=== PATIENT | male | born 1940 | race American Indian/Alaskan Native ===

== ENCOUNTER 2016-05-23 21:15 | Inpatient (IN) | payer MEDICARE ==
[2016-05-23] MEDS ORDERED: SENOKOT PO PRN (21:48)
[2016-05-23] MEDS ORDERED: TYLENOL PO PRN (21:48)
[2016-05-23] MEDS ORDERED: DULCOLAX PR PRN (21:48)
[2016-05-23] MEDS ORDERED: D50W (25GM) IV PRN (21:48)
[2016-05-23] MEDS ORDERED: LEVEMIR SUB-Q SCH (21:57)
[2016-05-23] MEDS: COLACE PO SCH (22:44)
[2016-05-23] MEDS: COREG PO SCH (22:44)
[2016-05-24 06:25] LABS: Basophils % (Auto) 0.4 % (0.0-1.8); Eosinophils % (Auto) 1.2 % (0.0-4.3); Hematocrit 41.9 % (35.5-45.6); Hemoglobin 13.7 gm/dl (11.8-15.2); Mean Corpuscular HGB Conc 33 % (32-34); Mean Corpuscular Hemoglobin 28 pg (28-32); Mean Corpuscular Volume 85 fl (84-94); Platelet Count 182 K/mm3 (140-440); Red Blood Count 4.96 M/mm3 (3.65-5.03); Red Cell Distribution Width 14.2 % (13.2-15.2); White Blood Count 7.6 K/mm3 (4.5-11.0)
[2016-05-24 06:49] LABS: Albumin 3.4 g/dL (3.9-5); BUN/Creatinine Ratio 12.14; Bilirubin,Total 0.5 mg/dL (0.1-1.2); Calcium 8.9 mg/dL (8.4-10.2); Chloride 98.1 mmol/L (98-107); Potassium 4.3 mmol/L (3.6-5.0); Total Protein 6.9 g/dL (6.3-8.2)
[2016-05-24] MEDS: NOVOLOG SUB-Q SCH ×4 (07:30→22:50)
[2016-05-24] MEDS ORDERED: NORVASC PO SCH (08:00)
[2016-05-24] MEDS ORDERED: ZESTRIL PO SCH (08:00)
[2016-05-24] MEDS: ZESTRIL PO SCH (09:39)
[2016-05-24] MEDS: ECOTRIN PO SCH (09:39)
[2016-05-24] MEDS: VITAMIN C PO SCH (09:40)
[2016-05-24] MEDS: COLACE PO SCH ×2 (09:40→22:39)
[2016-05-24] MEDS: LOVENOX SUB-Q SCH (09:40)
[2016-05-24] MEDS: COREG PO SCH ×2 (09:44→22:38)
--- NOTE | 2016-05-24 11:40 | History and Physical Report ---
History of Present Illness Date: 05/24/16 Referring Facility: [facility] Date of admission: 05/23/16 21:15 Chief Complaint: acute right frontal lobe infarct History of present illness: POST ADMISSION PHYSICIAN EVALUATION ONSET DATE: 05/21/2016 IMPAIRMENT GROUP CODE: 01.1 ETIOLOGIC DIAGNOSIS: acute right frontal lobe infarct STATUS CHANGES SINCE PREADMISSION SCREENING: PAS has been reviewed. In comparison, pt is more alert on today. He continues with dysarthria, dysphagia , and facial droop. Pt was able to initiate in therapy evaluations on today; continues with functional deficits. Pt remains an appropriate candidate for IRU admission. PREVIOUS FUNCTIONAL STATUS: Independent with ADLs, gait, and transfers CURRENT FUNCTIONAL STATUS: SBA-Rosario for ADLs; Rosario/CGA for transfers and gait HPI 75 y.o. right handed male admitted to [facility] due to acute onset of dysarthria and facial droop. MRI Brain confirmed right frontal CVA. Pt continued with presenting symptoms, also with left sided weakness, arm>leg. MBS was completed on acute care (05/23/2016); cleared for pureed with honey thickened liquids. Acute care course was complicated by fluctuating SBP, ranging from 144-199. Pt was noted to have decline in functional baseline following evaluation by PT and OT. Pt is now admitted to IRU for aggressive therapies and ongoing medical management. Past History Past Medical History: diabetes, hypertension, hyperlipidemia, stroke (no residual deficits prior to admission) Past Surgical History: No surgical history Social history: single, Lives alone (however, will discharge to one of his childrens' homes ). denies: smoking, alcohol abuse Family history: diabetes, hypertension, stroke Medications and Allergies Allergies Allergy/AdvReac Type Severity Reaction Status Date / Time No Known Allergies Allergy Verified 08/01/15 16:13 Home Medications Medication Instructions Recorded Confirmed Last Taken Type Lisinopril [Zestril TAB] 20 mg PO QDAY 08/09/13 05/21/16 08/10/13 History amLODIPine [Norvasc] 10 mg PO QDAY 08/09/13 05/21/16 08/10/13 History Carvedilol [Coreg] 6.25 mg PO BID 05/21/16 05/21/16 Unknown History Ascorbic Acid [Vitamin C] 500 mg PO DAILY tablet 05/23/16 Unknown Rx Aspirin EC [Aspirin Enteric Coated 325 mg PO QDAY #30 tablet. 05/23/16 Unknown Rx TAB] AtorvaSTATin [Lipitor] 80 mg PO QHS tablet 05/23/16 Unknown Rx Insulin Detemir [Levemir] 40 unit SQ QHS #1 vial 05/23/16 Unknown Rx Active Meds: Active Medications Acetaminophen (Tylenol) 650 mg PO Q4H PRN PRN Reason: Pain MILD(1-3)/Fever >100.5/MAE Amlodipine Besylate (Norvasc) 10 mg PO DAILY [facility] Ascorbic Acid (Vitamin C) 500 mg PO DAILY [facility] Last Admin: 05/24/16 09:40 Dose: 500 mg Aspirin (Ecotrin) 325 mg PO QDAY [facility] Last Admin: 05/24/16 09:39 Dose: 325 mg Atorvastatin Calcium (Lipitor) 80 mg PO QHS [facility] Bisacodyl (Dulcolax) 10 mg HI QDAY PRN PRN Reason: Constipation unrelieved by MOM Carvedilol (Coreg) 6.25 mg PO BID [facility] Last Admin: 05/24/16 09:44 Dose: 6.25 mg Dextrose (D50w (25gm)) 50 ml IV PRN PRN PRN Reason: Hypoglycemia Docusate Sodium (Colace) 100 mg PO BID [facility] Last Admin: 05/24/16 09:40 Dose: 100 mg Enoxaparin Sodium (Lovenox) 40 mg SUB-Q QDAY [facility] Last Admin: 05/24/16 09:40 Dose: 40 mg Insulin Aspart (Novolog) 0 units SUB-Q AC [facility] PRN Reason: Protocol Last Admin: 05/24/16 07:30 Dose: Not Given Insulin Detemir (Levemir) 40 units SUB-Q QHS [facility] Lisinopril (Zestril) 20 mg PO QDAY [facility] Last Admin: 05/24/16 09:39 Dose: 20 mg Senna (Senokot) 8.6 mg PO Q12H PRN PRN Reason: Laxative Effect Review of Systems All systems: negative Ears, nose, mouth and throat: no headache Respiratory: no cough, no shortness of breath Gastrointestinal: no nausea, no vomiting Genitourinary Male: incontinence Neurological: weakness (left extremities) Exam - Constitutional Vitals: Vital Signs - 12hr 05/24/16 05/24/16 08:00 09:39 Temperature 98.7 F Pulse Rate 64 Pulse Rate [ 64 Left Brachial] Respiratory 18 Rate Blood Pressure 126/62 Blood Pressure 126/62 [Left Arm] O2 Sat by Pulse 99 Oximetry General appearance: no acute distress - EENT Eyes: no EOM intact ENT: hearing intact - Neck Neck: supple, normal ROM - Respiratory Respiratory effort: normal Respiratory: bilateral: CTA - Cardiovascular Rhythm: regular Heart Sounds: Present: S1 & S2 - Extremities Extremities: No edema - Gastrointestinal General gastrointestinal: Present: soft, non-tender, non-distended, normal bowel sounds - Integumentary Integumentary: Present: clear - Musculoskeletal Musculoskeletal: left sided weakness (2/5) - Neurologic Neurologic: other (facial droop; dysarthria) - Psychiatric Psychiatric: no memory intact, cooperative (flat affect) - Labs CBC & Chem 7: 05/24/16 05:57 05/24/16 05:57 Labs: Laboratory Results - last 72 hr 05/23/16 05/24/16 05/24/16 22:48 05:48 05:57 WBC 7.6 RBC 4.96 Hgb 13.7 Hct 41.9 MCV 85 MCH 28 MCHC 33 RDW 14.2 Plt Count 182 Lymph % (Auto) 27.0 Camp % (Auto) 8.2 H Eos % (Auto) 1.2 Baso % (Auto) 0.4 Lymph # 2.1 Camp # 0.6 Eos # 0.1 Baso # 0.0 Seg Neutrophils % 63.2 Seg Neutrophils # 4.8 Sodium Potassium Chloride Carbon Dioxide Anion Gap BUN Creatinine Estimated GFR BUN/Creatinine Ratio Glucose POC Glucose 103 119 H Calcium Total Bilirubin AST ALT Alkaline Phosphatase Total Protein Albumin Albumin/Globulin Ratio 05/24/16 05:57 WBC RBC Hgb Hct MCV MCH MCHC RDW Plt Count Lymph % (Auto) Camp % (Auto) Eos % (Auto) Baso % (Auto) Lymph # Camp # Eos # Baso # Seg Neutrophils % Seg Neutrophils # Sodium 134 L Potassium 4.3 Chloride 98.1 Carbon Dioxide 21 L Anion Gap 19 BUN 17 Creatinine 1.4 Estimated GFR 60 BUN/Creatinine Ratio 12.14 Glucose 133 H POC Glucose Calcium 8.9 Total Bilirubin 0.5 AST 15 ALT 8 Alkaline Phosphatase 73 Total Protein 6.9 Albumin 3.4 L Albumin/Globulin Ratio 1.0 Assessment and Plan Assessment and plan: 75 y.o. right handed male a/p acute right frontal CVA; facial droop, dysarthria , dysphagia, left hemiparesis. The patient is medically stable, however, requires ongoing medical management. Pt is appropriate for inpatient rehabilitation admission and is thought to be able to tolerate at least 3 hours of therapy a day, 5 days a week including 1 hour of physical therapy, 1 hour of occupational therapy, and 1 hour of speech therapy. Patient is able to understand and follow basic directions and has attainable rehab goals. Potential barriers/complications include falls, extension/recurrent CVA, depression, DVT, PE, uncontrolled HTN, parasthesias, aspiration pneumonia, hypotension. Plan 1. Rehabilitation- Pt will undergo multidisciplinary/integrative rehab PT/OT/ REGIONAL TRAINING MANAGER, Nursing. Areas to be addressed include, but are not limited to PT for mobility, strengthening, transfer training, ROM, endurance, stairs, balance; OT for ADLs, household tasks, adaptive equipment; REGIONAL TRAINING MANAGER for cognition, swallowing, compensatory techniques; Nursing for carryover of therapies, pain control, education, skin integrity, medication management, bowel/bladder management; Nutrition as needed; youth services specialist for discharge planning and equipment needs. Potential interventions include appropriate assistive device or adaptive equipment. Expected overall level of functional improvement by discharge is Jie to supervision with ADLs, gait, transfers. Pt will tentatively be discharged home with outpatient PT/OT/REGIONAL TRAINING MANAGER. Estimated length of stay is 1-2 weeks. 2. s/p right CVA- ASA, statin; PT/OT/REGIONAL TRAINING MANAGER to address functional deficits, dysphagia, dysarthria, gait dysfunction secondary to CVA 3. HTN- stable on current regimen; follow and adjust meds as needed 4. DM- on 40U levemir at home; however, with BS of 103 last night, 119 this AM ; will give 10U tonight and follow; slowly increase as po intake increases 5. hyponatremia- follow 6. DVT px- lovenox - Patient Problems (1) Acute ischemic stroke Current Visit: Yes Status: Acute (2) Hemiparesis affecting left side as late effect of cerebrovascular accident Current Visit: Yes Status: Acute (3) Dysphagia following cerebrovascular accident (CVA) Current Visit: Yes Status: Acute (4) Dysarthria due to cerebrovascular accident (CVA) Current Visit: Yes Status: Acute (5) Hyponatremia Current Visit: Yes Status: Acute (6) HTN (hypertension) Current Visit: Yes Status: Chronic Qualifiers: Hypertension type: essential hypertension Qualified Code(s): I10 - Essential (primary) hypertension (7) Diabetes Current Visit: Yes Status: Chronic Qualifiers: Diabetes mellitus type: type 2 Diabetes mellitus complication status: with hyperglycemia Diabetes mellitus complication detail: D Diabetic retinopathy severity: D Proliferative retinopathy type: P Diabetes mellitus macular edema: D Diabetes mellitus emt intermediate insulin use: with snf use Laterality: L Chronic kidney disease stage: C Qualified Code(s): E11.65 - Type 2 diabetes mellitus with hyperglycemia; Z79.4 - technician terminal and repeater (current) use of insulin
[2016-05-24] MEDS: NORVASC PO SCH (13:03)
[2016-05-24] MEDS ORDERED: LEVEMIR SUB-Q SCH ×3 (21:00)
[2016-05-25] MEDS: NOVOLOG SUB-Q SCH ×4 (08:25→23:00)
[2016-05-25] MEDS: ECOTRIN PO SCH (09:45)
[2016-05-25] MEDS: NORVASC PO SCH (09:45)
[2016-05-25] MEDS: COLACE PO SCH ×2 (09:45→23:34)
[2016-05-25] MEDS: LOVENOX SUB-Q SCH (09:46)
[2016-05-25] MEDS: COREG PO SCH ×2 (09:47→23:32)
[2016-05-25] MEDS: VITAMIN C PO SCH (09:47)
[2016-05-25] MEDS: ZESTRIL PO SCH (09:48)
--- NOTE | 2016-05-25 15:38 | IRU Plan of Care ---
Interdisciplinary Plan of Care - IP IRU INTERDISCIPLINARY PLAN: [facility] Inpatient Rehab Unit Plan of Care IRU Interdisciplinary Care Plan Start: 05/23/16 22: 09 Freq: Admission then PRN Status: Active Document 05/24/16 17:38 DB (Rec: 05/24/16 17:46 DB [id number]) Interdisciplinary Problem List Interdisciplinary Problem List Interdisciplinary Problem List Impaired Eating/Swallowing Query Text:Answers will Trigger Problems Impaired Bathing/Grooming and Outcomes on Worklist. Impaired Dressing Impaired Mobility Impaired Transfers Impaired Bladder/Bowel Management Impaired Toileting Impaired Expression Knowledge Deficits Impaired Home Management Impaired Safety Medications Education Diabetes Education IRU Interdisciplinary Care Plan Therapy Services Therapy Services Will Include: Physical Therapy Query Text:Patient will be seen for a Occupational Therapy minimum of 3 hours of daily therapy 5 Speech Therapy out of 7 days a week. Therapy intensity may be adjusted within a 7 consecutive day period to effectively serve the individual needs of the patient. Treatment Frequency/Intensity/Duration Treatment Frequency 5 days per week Treatment Intensity 1 hour per discipline (PT/OT/ RUBBER INSULATOR) daily Treatment Duration 14-21 days Problem Area: Eating/Swallowing Eating/Swallowing Outcomes Consume Least Restrictive Diet Improve Labial ROM/Strength Improve Lingual ROM/Strength Eating/Swallowing Interventions Dysphagia Training Neuromuscular Re-Education Patient/Caregiver Education Problem Area: Bathing/Grooming Bathing/Grooming Outcomes Improve [place]althall w/ Grooming Improve [place] w/ Bathing Bathing/Grooming Interventions ADL Training Use of Assistive Devices Therapeutic Exercise Therapeutic Activity Balance Work Patient/Caregiver Education Problem Area: Dressing Dressing Outcomes Improve Walthall w/ UB Dressing Improve Walthall w/ LB Dressing Dressing Interventions ADL Training Use of Assistive Devices Therapeutic Exercise Balance Work Patient/Caregiver Education Problem Area: Mobility Mobility Outcomes Improve Walthall w/ Bed Mobility Improve [place]althall w/ Ambulation Improve [place] w/ Stairs /Curb Improve [place] w/ Wheelchair Mobility Interventions Therapeutic Exercise Neuromuscular Re-Ed. Visual/Perceptual Training Activity Tolerance Work Use of Assistive Devices Patient/Caregiver Education Bed Mobility Work Gait Training W/C Mobility Work Problem Area: Transfers Transfers Outcomes Improve [place] w/ Bed Transfers Improve [place] w/ Toilet Transfers Improve [place] w/ Tub/ Shower Transfers Improve [place] w/ Car Transfers Transfers Interventions Transfer Training Therapeutic Exercise Neuromuscular Re-Education Activity Tolerance Work Use of Assistive Devices Patient/Caregiver Education Problem Area: Bowel/Bladder Managment Bowel/Bladder Outcomes Continent of Bladder Continent of Bowel Remain free of UTI Bowel/Bladder Interventions Bladder Training Program Bowel Training Program Medication Education Patient/Caregiver Education Problem Area: Toileting Toileting Outcomes Improve [place] w/ Toileting Toileting Interventions ADL Training Balance Work Use of Assistive Devices Patient/Caregiver Education Problem Area: Nutrition Nutrition Outcomes Understand and Comply w/ Diet Improve/Maintain Oral Intake Nutrition Interventions Nutritional Counseling Monitor Nutrient Intake Patient/Caregiver Education Problem Area: Comprehension Comprehension Outcomes Comprehension Interventions Problem Area: Expression Expression Outcomes Improve Intelligibility Expression Interventions Expressive Language Patient/Caregiver Education Problem Area: Problem Solving Problem Solving Outcomes Improve Problem Solving Problem Solving Interventions Cognitive Training Visual/Perceptual Training Safety Education Patient/Caregiver Education Problem Area: Memory Memory Outcomes Use Memory Aids Memory Interventions Cognitive Training Review of Precautions Patient/Caregiver Education Problem Area: Pain Management Pain Management Outcomes Demonstrate/Verbalize Pain Strategies Pain Management Interventions Medication Management Positioning/Turning Patient/Caregiver Education Problem Area: Knowledge Deficits Knowledge Deficits Outcomes Verbalize Precautions Verbalize Understanding of S/S of Stroke Knowledge Deficits Interventions Disease/Injury/Sx. Intervention Education Medication Use Education Disease Management Education Health Maintainence Education Safety Education Problem Area: Skin/Tissue Integrity Skin/Tissue Integrity Outcomes Demonstrate Understanding of Pressure Relief Skin/Tissue Integrity Interventions Pressure Relief Instruction Positioning/Turning Problem Area: Social Interaction Social Interaction Outcomes Social Interaction Interventions Problem Area: Adjustment to Disability Adjustment to Disability Outcomes Adjustment to Disability Interventions Problem Area: Discharge Concerns Discharge Concerns Outcomes Discharge Home w/ Necessary Equipment Have Home Health/Outpatient Services Discharge Concerns Interventions Discharge Planning Family/Caregiver Conference Family/Caregiver Training Problem Area: Community Reintegration Community Reintegration Outcomes Demonstrate Understanding of Community Resources Community Reintegration Interventions Provide Community Resources Problem Area: Home Management Home Management Outcomes Home Management Interventions Problem Area: Safety Safety Outcomes Provide Safe Environment Perform Selfcare Safely Demonstrate Good Safety w/ Transfers/Mobility Safety Interventions Identify Fall Risk [place] Pt. to Environment Reduce Environmental Hazards Problem Area: Medication Education Medication Education Outcomes Patient/Caregiver will Verbalize Understanding of Medications Medication Education Interventions Explain Administration/Side Effects/Interactions Problem Area: Diabetes Education Diabetes Education Outcomes Demonstrate Knowledge of Resources Availlable in Diabetic Ed. Folder Diabetes Education Interventions Give Pt. Diabetes Education Folder Discuss Pathophysiology of Diabetes Problem Area: Oxygenation Oxygenation Outcomes Maintain Adequate Oxygenation Oxygenation Interventions Assess Respiratory Status Encourage Coughing and Deep Breathing Elevate Head of Bed Problem Area: Cardiovascular Cardiovascular Outcomes Cardiovascular Interventions Physician Only Medical Prognosis and Rehabilitation Patient demonstrates good Potential (Completed by Physician) rehab potential. Medical Prognosis: Good This plan of care has been developed based on the findings from the pre- admission assessment, post admission physician evaluation, information gathered from the assessments from all therapy disciplines and other pertinent clinicians. The plan of care has been reviewed and discussed in collaboration with the interdisciplinary team. The plan of care will be reviewed and updated at least weekly. 75 y.o. right handed male a/p acute right frontal CVA; facial droop, dysarthria , dysphagia, left hemiparesis. The patient remains at risk for falls, extension /recurrent CVA, depression, DVT, PE, uncontrolled HTN, parasthesias, aspiration pneumonia, hypotension, hypoglycemia. Pt is tolerating therapies; noted to have worsening left sided weakness at the end of the day due to fatigue. Will need to follow blood sugars closely, home levemir discontinued due to hypoglycemia; follow HTN and hyponatremia. Pt continues with functional and cognitive deficits; remains an appropriate candidate for IRU admission.
[2016-05-26] MEDS: NOVOLOG SUB-Q SCH ×3 (08:51→20:12)
[2016-05-26] MEDS: LOVENOX SUB-Q SCH (08:52)
[2016-05-26] MEDS: ECOTRIN PO SCH (08:52)
[2016-05-26] MEDS: ZESTRIL PO SCH (08:53)
[2016-05-26] MEDS: COLACE PO SCH ×2 (08:53→22:55)
[2016-05-26] MEDS: NORVASC PO SCH ×2 (08:54→10:00)
[2016-05-26] MEDS: COREG PO SCH ×2 (08:54→22:53)
[2016-05-26] MEDS: VITAMIN C PO SCH ×2 (08:55→10:00)
[2016-05-27] MEDS: NOVOLOG SUB-Q SCH ×4 (10:01→23:10)
[2016-05-27] MEDS: ECOTRIN PO SCH (10:02)
[2016-05-27] MEDS: COREG PO SCH ×2 (10:02→22:40)
[2016-05-27] MEDS: LOVENOX SUB-Q SCH (10:02)
[2016-05-27] MEDS: NORVASC PO SCH (10:03)
[2016-05-27] MEDS: ZESTRIL PO SCH (10:03)
[2016-05-27] MEDS: VITAMIN C PO SCH (10:03)
[2016-05-27] MEDS: COLACE PO SCH ×2 (10:15→22:40)
--- NOTE | 2016-05-27 14:44 | Progress Note ---
Assessment and Plan 75 y.o. 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; modified diet - HTN- stable on current regimen - DM- on 40U levemir at home; blood sugars elevated with improved po intake, will resume levemir and slowly increase as needed - DVT px- lovenox - Patient Problems (1) Acute ischemic stroke Current Visit: Yes Status: Acute (2) Hemiparesis affecting left side as late effect of cerebrovascular accident Current Visit: Yes Status: Acute (3) Dysphagia following cerebrovascular accident (CVA) Current Visit: Yes Status: Acute (4) Dysarthria due to cerebrovascular accident (CVA) Current Visit: No Status: Acute (5) HTN (hypertension) Current Visit: Yes Status: Chronic Qualifiers: Hypertension type: essential hypertension Qualified Code(s): I10 - Essential (primary) hypertension (6) Diabetes Current Visit: Yes Status: Chronic Qualifiers: Diabetes mellitus type: type 2 Diabetes mellitus complication status: with hyperglycemia Diabetes mellitus complication detail: D Diabetic retinopathy severity: D Proliferative retinopathy type: P Diabetes mellitus macular edema: D Diabetes mellitus prison insulin use: with benefits assistant use Laterality: L Chronic kidney disease stage: C Qualified Code(s): E11.65 - Type 2 diabetes mellitus with hyperglycemia; Z79.4 - chemical research technician (current) use of insulin Subjective Date of service: 05/27/16 Principal diagnosis: acute right frontal CVA Interval history: Pt seen ambulating in hallway with PT and in room this AM; F/U IPR course, s/p acute right frontal CVA. Pt is without any new complaints, more alert today during gait training Objective - Constitutional General appearance: Present: no acute distress - EENT Eyes: EOM intact ENT: hearing intact - Neck Neck: supple, normal ROM - Respiratory Respiratory effort: normal Respiratory: bilateral: CTA - Cardiovascular Rhythm: regular Heart Sounds: Present: S1 & S2 Extremities: No edema - Gastrointestinal General gastrointestinal: Present: soft, non-tender, non-distended, normal bowel sounds - Integumentary Integumentary: clear - Musculoskeletal Musculoskeletal: left sided weakness (2/5) - Psychiatric Psychiatric: cooperative (flat affect) - Allied health notes Allied health notes reviewed: PT (Rosario for transfers and gait, ambulating 200 feet ), OT (SBA to Rosario for ADLs) - Labs CBC & Chem 7: 05/24/16 05:57 05/24/16 05:57 Labs: Abnormal lab results 05/26/16 05/26/16 05/26/16 Range/Units 11:57 16:57 21:42 POC Glucose 242 H 109 H 210 H (70-105) 05/27/16 05/27/16 Range/Units 07:16 11:18 POC Glucose 211 H 275 H (70-105)
[2016-05-27] MEDS: LEVEMIR SUB-Q SCH (22:53)
[2016-05-28] MEDS: NORVASC PO SCH (10:45)
[2016-05-28] MEDS: ECOTRIN PO SCH (10:45)
[2016-05-28] MEDS: ZESTRIL PO SCH (10:46)
[2016-05-28] MEDS: COREG PO SCH ×2 (10:46→22:50)
[2016-05-28] MEDS: COLACE PO SCH ×2 (10:46→22:49)
[2016-05-28] MEDS: NOVOLOG SUB-Q SCH ×5 (10:46→22:56)
[2016-05-28] MEDS: VITAMIN C PO SCH (10:46)
[2016-05-28] MEDS: LOVENOX SUB-Q SCH (10:48)
--- NOTE | 2016-05-28 16:24 | Progress Note ---
Assessment and Plan 75 y.o. right handed male a/p acute right frontal CVA; facial droop, dysarthria , dysphagia, left hemiparesis - s/p right CVA- ASA, statin - gait dysfunction secondary to CVA- ongoing gait training - dysarthria/dysphagia- continue STERILE TECH; modified diet (pureed, honey thickened liquids) - HTN- stable - DM- restarted on levemir on yesterday; follow and adjust as needed - DVT px- lovenox - team conference held on today- pt is s/u for eating; min-modA for remaining ADLs; CGA for transfer; Rosario for WC mobility; ambulating 200 feet with RW at Rosario. Barriers- left sided neglect; incontinence. Tentative d/c date is 06/11 - Patient Problems (1) Acute ischemic stroke Current Visit: Yes Status: Acute (2) Hemiparesis affecting left side as late effect of cerebrovascular accident Current Visit: Yes Status: Acute (3) Dysphagia following cerebrovascular accident (CVA) Current Visit: Yes Status: Acute (4) Dysarthria due to cerebrovascular accident (CVA) Current Visit: No Status: Acute (5) HTN (hypertension) Current Visit: Yes Status: Chronic Qualifiers: Hypertension type: essential hypertension Qualified Code(s): I10 - Essential (primary) hypertension (6) Diabetes Current Visit: Yes Status: Chronic Qualifiers: Diabetes mellitus type: type 2 Diabetes mellitus complication status: with hyperglycemia Diabetes mellitus complication detail: D Diabetic retinopathy severity: D Proliferative retinopathy type: P Diabetes mellitus macular edema: D Diabetes mellitus oysterman insulin use: with oysterman use Laterality: L Chronic kidney disease stage: C Qualified Code(s): E11.65 - Type 2 diabetes mellitus with hyperglycemia; Z79.4 - jail (current) use of insulin (7) Abnormality of gait following cerebrovascular accident (CVA) Current Visit: Yes Status: Acute Subjective Date of service: 05/28/16 Principal diagnosis: acute right frontal CVA Interval history: Pt seen this afternoon; F/U IPR course, s/p acute right frontal CVA. No new complaints overnight; propelling WC in hallway, required cues to prevent running into objects on the left Objective - Constitutional Vitals: Vital Signs - 12hr 05/28/16 05/28/16 08:00 10:45 Temperature 98.3 F Pulse Rate 56 L Pulse Rate [ 56 L Right Brachial] Respiratory 20 Rate Blood Pressure 164/96 Blood Pressure 164/96 [Right Arm] O2 Sat by Pulse 96 Oximetry General appearance: Present: no acute distress - EENT Eyes: EOM intact ENT: hearing intact - Neck Neck: supple, normal ROM - Respiratory Respiratory effort: normal Extremities: No edema - Musculoskeletal Musculoskeletal: left sided weakness - Psychiatric Psychiatric: cooperative (flat affect; follows commands and responds well to cues) - Labs CBC & Chem 7: 05/24/16 05:57 05/24/16 05:57 Labs: Abnormal lab results 05/27/16 05/27/16 05/28/16 Range/Units 16:46 21:39 06:14 POC Glucose 204 H 210 H 210 H (70-105) 05/28/16 Range/Units 12:46 POC Glucose 229 H (70-105)
[2016-05-28] MEDS: LEVEMIR SUB-Q SCH (22:57)
[2016-05-29] MEDS: NOVOLOG SUB-Q SCH ×3 (08:15→17:49)
[2016-05-29] MEDS: COREG PO SCH ×2 (10:15→23:09)
[2016-05-29] MEDS: VITAMIN C PO SCH (10:15)
[2016-05-29] MEDS: ZESTRIL PO SCH (10:15)
[2016-05-29] MEDS: LOVENOX SUB-Q SCH (10:15)
[2016-05-29] MEDS: COLACE PO SCH ×2 (10:16→23:12)
[2016-05-29] MEDS: ECOTRIN PO SCH (10:16)
[2016-05-29] MEDS: NORVASC PO SCH (10:16)
--- NOTE | 2016-05-29 16:07 | Progress Note ---
Assessment and Plan 75 y.o. 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; modified diet (pureed, honey thickened liquids) - HTN- well controlled - DM- well controlled - DVT px- lovenox - Patient Problems (1) Acute ischemic stroke Current Visit: Yes Status: Acute (2) Hemiparesis affecting left side as late effect of cerebrovascular accident Current Visit: Yes Status: Acute (3) Dysphagia following cerebrovascular accident (CVA) Current Visit: Yes Status: Acute (4) Dysarthria due to cerebrovascular accident (CVA) Current Visit: No Status: Acute (5) HTN (hypertension) Current Visit: Yes Status: Chronic Qualifiers: Hypertension type: essential hypertension Qualified Code(s): I10 - Essential (primary) hypertension (6) Diabetes Current Visit: Yes Status: Chronic Qualifiers: Diabetes mellitus type: type 2 Diabetes mellitus complication status: with hyperglycemia Diabetes mellitus complication detail: D Diabetic retinopathy severity: D Proliferative retinopathy type: P Diabetes mellitus macular edema: D 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 No new events overnight; denies any coughing or choking on meals Objective - Constitutional Vitals: Vital Signs - 12hr 05/29/16 05/29/16 10:00 10:15 Temperature 97 F L Pulse Rate 57 L Pulse Rate [ 57 L Right Brachial] Respiratory 18 Rate Blood Pressure 137/70 Blood Pressure 137/70 [Right Arm] O2 Sat by Pulse 98 Oximetry General appearance: Present: no acute distress - EENT Eyes: EOM intact ENT: hearing intact - Neck Neck: supple, normal ROM - Respiratory Respiratory effort: normal Extremities: No edema - Musculoskeletal Musculoskeletal: left sided weakness - Neurologic Neurologic: other (unchandged facial droop) - Psychiatric Psychiatric: appropriate mood/affect, cooperative - Allied health notes Allied health notes reviewed: PT (Rosairo for gait; CGA for transfers; SBA for bed mobility) - Labs CBC & Chem 7: 05/24/16 05:57 05/24/16 05:57 Labs: Abnormal lab results 05/28/16 05/29/16 05/29/16 Range/Units 16:56 06:21 11:56 POC Glucose 178 H 138 H 171 H (70-105)
[2016-05-29] MEDS: LEVEMIR SUB-Q SCH (23:12)
[2016-05-30] MEDS: NOVOLOG SUB-Q SCH ×4 (11:19→22:13)
[2016-05-30] MEDS: ZESTRIL PO SCH (11:31)
[2016-05-30] MEDS: COLACE PO SCH ×2 (11:33→22:12)
[2016-05-30] MEDS: NORVASC PO SCH (11:33)
[2016-05-30] MEDS: ECOTRIN PO SCH (11:33)
[2016-05-30] MEDS: COREG PO SCH ×2 (11:34→22:13)
[2016-05-30] MEDS: VITAMIN C PO SCH (11:35)
[2016-05-30] MEDS: LOVENOX SUB-Q SCH (11:38)
--- NOTE | 2016-05-30 15:45 | Progress Note ---
Assessment and Plan 75 y.o. 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; modified diet (pureed, honey thickened liquids) - HTN- well controlled - DM- notified by nursing of elevated blood sugars after lunch and associated headache - DVT px- lovenox - Patient Problems (1) Acute ischemic stroke Current Visit: Yes Status: Acute (2) Hemiparesis affecting left side as late effect of cerebrovascular accident Current Visit: Yes Status: Acute (3) Dysphagia following cerebrovascular accident (CVA) Current Visit: Yes Status: Acute (4) Dysarthria due to cerebrovascular accident (CVA) Current Visit: No Status: Acute (5) HTN (hypertension) Current Visit: Yes Status: Chronic Qualifiers: Hypertension type: essential hypertension Qualified Code(s): I10 - Essential (primary) hypertension (6) Diabetes Current Visit: Yes Status: Chronic Qualifiers: Diabetes mellitus type: type 2 Diabetes mellitus complication status: with hyperglycemia Diabetes mellitus complication detail: D Diabetic retinopathy severity: D Proliferative retinopathy type: P Diabetes mellitus macular edema: D Diabetes mellitus fpc insulin use: with allergy physician use Laterality: L Chronic kidney disease stage: C Qualified Code(s): E11.65 - Type 2 diabetes mellitus with hyperglycemia; Z79.4 - [facility] (current) use of insulin (7) Abnormality of gait following cerebrovascular accident (CVA) Current Visit: Yes Status: Acute Subjective Date of service: 05/30/16 Principal diagnosis: acute right frontal CVA Interval history: Pt seen this afternoon in room; F/U IPR course, s/p acute right frontal CVA. Elevated blood sugar after lunch; reports headache in therapy Objective - Constitutional Vitals: Vital Signs - 12hr 05/30/16 05/30/16 05/30/16 07:30 11:31 11:33 Temperature 98.1 F Pulse Rate 68 Pulse Rate [ 68 Right Brachial] Respiratory 20 Rate Blood Pressure 136/71 136/71 Blood Pressure 136/71 [Right Arm] O2 Sat by Pulse 100 Oximetry 05/30/16 11:34 Temperature Pulse Rate 68 Pulse Rate [ Right Brachial] Respiratory Rate Blood Pressure 136/71 Blood Pressure [Right Arm] O2 Sat by Pulse Oximetry General appearance: Present: mild distress (headache) - EENT Eyes: EOM intact ENT: hearing intact - Neck Neck: supple, normal ROM - Respiratory Respiratory effort: normal Extremities: No edema - Integumentary Integumentary: clear - Musculoskeletal Musculoskeletal: left sided weakness (left sided neglect) - Neurologic Neurologic: other (unchanged facial droop, dysarthria) - Psychiatric Psychiatric: appropriate mood/affect, cooperative - Allied health notes Allied health notes reviewed: PT (CGA for transfers; Rosario for gait) - Labs CBC & Chem 7: 05/24/16 05:57 05/24/16 05:57 Labs: Abnormal lab results 05/29/16 05/29/16 05/30/16 Range/Units 17:17 21:36 07:00 POC Glucose 192 H 125 H 166 H (70-105) 05/30/16 05/30/16 Range/Units 12:02 14:44 POC Glucose 227 H 367 H (70-105)
[2016-05-30] MEDS: LEVEMIR SUB-Q SCH (22:13)
[2016-05-31] MEDS: NOVOLOG SUB-Q SCH ×4 (07:30→23:00)
[2016-05-31] MEDS: LOVENOX SUB-Q SCH (10:15)
[2016-05-31] MEDS: ZESTRIL PO SCH (10:16)
[2016-05-31] MEDS: ECOTRIN PO SCH (10:17)
[2016-05-31] MEDS: COLACE PO SCH ×2 (10:17→23:00)
[2016-05-31] MEDS: VITAMIN C PO SCH (10:18)
[2016-05-31] MEDS: COREG PO SCH ×2 (10:19→23:47)
[2016-05-31] MEDS: NORVASC PO SCH (10:26)
--- NOTE | 2016-05-31 12:43 | Progress Note ---
Assessment and Plan 75 y.o. right handed male a/p acute right frontal CVA, left side neglect; facial droop, dysarthria, dysphagia, left hemiparesis - s/p right CVA- ASA, statin - gait dysfunction secondary to CVA- ongoing gait training - dysarthria/dysphagia- continue LEAD ENGINEER; modified diet (pureed, honey thickened liquids); trialled with solids during LEAD ENGINEER on today, denies any coughing - HTN- slightly elevated from previous; if remains elevated, will adjust meds - DM- continue on current - DVT px- lovenox - Patient Problems (1) Acute ischemic stroke Current Visit: Yes Status: Acute (2) Hemiparesis affecting left side as late effect of cerebrovascular accident Current Visit: Yes Status: Acute (3) Dysphagia following cerebrovascular accident (CVA) Current Visit: Yes Status: Acute (4) Dysarthria due to cerebrovascular accident (CVA) Current Visit: No Status: Acute (5) HTN (hypertension) Current Visit: Yes Status: Chronic Qualifiers: Hypertension type: essential hypertension Qualified Code(s): I10 - Essential (primary) hypertension (6) Diabetes Current Visit: Yes Status: Chronic Qualifiers: Diabetes mellitus type: type 2 Diabetes mellitus complication status: with hyperglycemia Diabetes mellitus complication detail: D Diabetic retinopathy severity: D Proliferative retinopathy type: P Diabetes mellitus macular edema: D 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 No new complaints; daughter present. Pt educated on recommended diet modifications at discharge; CVA education provided Objective - Constitutional Vitals: Vital Signs - 12hr 05/31/16 05/31/16 05/31/16 08:00 10:16 10:19 Temperature 98.1 F Pulse Rate 76 76 Pulse Rate [ 76 Right Brachial] Respiratory 20 Rate Blood Pressure 156/73 156/73 Blood Pressure 150/73 [Right Arm] O2 Sat by Pulse 96 Oximetry 05/31/16 10:26 Temperature Pulse Rate 76 Pulse Rate [ Right Brachial] Respiratory Rate Blood Pressure 156/73 Blood Pressure [Right Arm] O2 Sat by Pulse Oximetry General appearance: Present: no acute distress - EENT Eyes: EOM intact ENT: hearing intact - Neck Neck: supple, normal ROM - Respiratory Respiratory effort: normal Extremities: No edema - Integumentary Integumentary: clear - Musculoskeletal Musculoskeletal: left sided weakness - Psychiatric Psychiatric: appropriate mood/affect, cooperative - Allied health notes Allied health notes reviewed: PT (CGA for transfers; Rosario for gait) - Labs CBC & Chem 7: 05/24/16 05:57 05/24/16 05:57 Labs: Abnormal lab results 05/30/16 05/30/16 05/31/16 Range/Units 14:44 21:34 11:23 POC Glucose 367 H 213 H 251 H (70-105)
[2016-05-31] MEDS: LEVEMIR SUB-Q SCH (23:00)
[2016-06-01] MEDS: ECOTRIN PO SCH (09:09)
[2016-06-01] MEDS: VITAMIN C PO SCH (09:09)
[2016-06-01] MEDS: NORVASC PO SCH (09:09)
[2016-06-01] MEDS: LOVENOX SUB-Q SCH (09:09)
[2016-06-01] MEDS: ZESTRIL PO SCH (09:10)
[2016-06-01] MEDS: COREG PO SCH ×2 (09:10→23:02)
[2016-06-01] MEDS: NOVOLOG SUB-Q SCH ×4 (09:11→23:04)
[2016-06-01] MEDS: COLACE PO SCH ×2 (09:11→23:02)
[2016-06-01] MEDS: LEVEMIR SUB-Q SCH (23:05)
[2016-06-02] MEDS: NOVOLOG SUB-Q SCH ×4 (10:15→21:58)
[2016-06-02] MEDS: ECOTRIN PO SCH (10:17)
[2016-06-02] MEDS: LOVENOX SUB-Q SCH (10:17)
[2016-06-02] MEDS: COREG PO SCH ×2 (10:17→21:58)
[2016-06-02] MEDS: ZESTRIL PO SCH (10:17)
[2016-06-02] MEDS: COLACE PO SCH ×2 (10:18→21:57)
[2016-06-02] MEDS: VITAMIN C PO SCH (10:43)
[2016-06-02] MEDS: NORVASC PO SCH (10:44)
[2016-06-02] MEDS: LEVEMIR SUB-Q SCH (23:03)
[2016-06-03 06:37] LABS: Hematocrit 41.3 % (35.5-45.6); Hemoglobin 13.8 gm/dl (11.8-15.2); Mean Corpuscular HGB Conc 33 % (32-34); Mean Corpuscular Hemoglobin 28 pg (28-32); Mean Corpuscular Volume 85 fl (84-94); Platelet Count 207 K/mm3 (140-440); Red Blood Count 4.88 M/mm3 (3.65-5.03); Red Cell Distribution Width 13.8 % (13.2-15.2); White Blood Count 5.1 K/mm3 (4.5-11.0)
[2016-06-03 06:51] LABS: BUN/Creatinine Ratio 10.66; Calcium 9.1 mg/dL (8.4-10.2); Chloride 101.9 mmol/L (98-107); Potassium 4.5 mmol/L (3.6-5.0)
[2016-06-03] MEDS: NOVOLOG SUB-Q SCH ×5 (08:00→23:10)
[2016-06-03] MEDS: NORVASC PO SCH (09:05)
[2016-06-03] MEDS: LOVENOX SUB-Q SCH (09:53)
[2016-06-03] MEDS: COREG PO SCH ×2 (09:54→23:08)
[2016-06-03] MEDS: VITAMIN C PO SCH (09:54)
[2016-06-03] MEDS: ECOTRIN PO SCH (09:54)
[2016-06-03] MEDS: COLACE PO SCH ×2 (09:55→23:08)
[2016-06-03] MEDS: ZESTRIL PO SCH (16:19)
--- NOTE | 2016-06-03 16:23 | Progress Note ---
Assessment and Plan 75 y.o. 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; modified diet (pureed, honey thickened liquids); semi-solid trials with VENDING MACHINE COIN COLLECTOR only - HTN- well controlled - DM- controlled - DVT px- lovenox - Patient Problems (1) Acute ischemic stroke Current Visit: Yes Status: Acute (2) Hemiparesis affecting left side as late effect of cerebrovascular accident Current Visit: Yes Status: Acute (3) Dysphagia following cerebrovascular accident (CVA) Current Visit: Yes Status: Acute (4) Dysarthria due to cerebrovascular accident (CVA) Current Visit: No Status: Acute (5) HTN (hypertension) Current Visit: Yes Status: Chronic Qualifiers: Hypertension type: essential hypertension Qualified Code(s): I10 - Essential (primary) hypertension (6) Diabetes Current Visit: Yes Status: Chronic Qualifiers: Diabetes mellitus type: type 2 Diabetes mellitus complication status: with hyperglycemia Diabetes mellitus complication detail: D Diabetic retinopathy severity: D Proliferative retinopathy type: P Diabetes mellitus macular edema: D Diabetes mellitus halfway insulin use: with halfway use Laterality: L Chronic kidney disease stage: C Qualified Code(s): E11.65 - Type 2 diabetes mellitus with hyperglycemia; 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 No acute events over weekend; no complaints this AM; +BM on yesterday Objective - Constitutional Vitals: Vital Signs - 12hr 06/03/16 06/03/16 08:00 09:54 Temperature 97.9 F Pulse Rate 62 Pulse Rate [ 62 Right Brachial] Respiratory 18 Rate Blood Pressure 111/69 Blood Pressure 111/69 [Right Arm] O2 Sat by Pulse 100 Oximetry General appearance: Present: no acute distress - EENT Eyes: EOM intact ENT: hearing intact - Neck Neck: supple, normal ROM - Respiratory Respiratory effort: normal Respiratory: bilateral: CTA - Cardiovascular Rhythm: regular Heart Sounds: Present: S1 & S2 Extremities: No edema - Gastrointestinal General gastrointestinal: Present: soft, non-tender, non-distended, normal bowel sounds - Integumentary Integumentary: clear - Musculoskeletal Musculoskeletal: left sided weakness (3/5 UE/LE) - Neurologic Neurologic: other (ongoing facial droop and dysarthria) - Psychiatric Psychiatric: appropriate mood/affect, cooperative - Allied health notes Allied health notes reviewed: OT (Jie-Rosario for ADLs) - Labs CBC & Chem 7: 06/03/16 06:07 06/03/16 06:07 Labs: Abnormal lab results 06/02/16 06/02/16 06/03/16 Range/Units 17:01 21:58 06:07 Glucose 130 H (75-100) mg/dL POC Glucose 165 H 119 H (70-105) 06/03/16 06/03/16 Range/Units 06:43 12:07 Glucose (75-100) mg/dL POC Glucose 119 H 183 H (70-105)
[2016-06-03] MEDS: LEVEMIR SUB-Q SCH (23:09)
[2016-06-04] MEDS: NOVOLOG SUB-Q SCH ×4 (08:00→23:07)
[2016-06-04] MEDS: ECOTRIN PO SCH (10:05)
[2016-06-04] MEDS: COREG PO SCH ×2 (10:05→23:05)
[2016-06-04] MEDS: VITAMIN C PO SCH (10:06)
[2016-06-04] MEDS: COLACE PO SCH ×2 (10:06→23:06)
[2016-06-04] MEDS: NORVASC PO SCH (10:06)
[2016-06-04] MEDS: ZESTRIL PO SCH (10:06)
[2016-06-04] MEDS: LOVENOX SUB-Q SCH (10:07)
--- NOTE | 2016-06-04 14:01 | Fluoroscopy Report ---
MODIFIED BARIUM SWALLOW: A modified barium swallow was performed with the aid of the speech pathologist. Fluoroscopic observation with multiple consistencies of barium was performed. Please see speech pathologist's notes for impression.
--- NOTE | 2016-06-04 17:21 | Progress Note ---
Assessment and Plan 75 y.o. right handed male a/p acute right frontal CVA, left side neglect; facial droop, dysarthria, left hemiparesis - s/p right CVA- ASA, statin - gait dysfunction secondary to CVA- CGA for gait and stairs - dysarthria/dysphagia- modified barium swallow completed on today; advanced to regular consistency diet with thin liquids - HTN/DM- stable - DVT px- lovenox - team conference held on today- pt has progressed to s/u for eating and UB dressing; SBA for bathing, LB dressing, toileting, shower transfer; Jie for toilet transfer; supervision for bed mobility and wheelchair mobility; CGA for sit-stand transfers; ambulating 340 feet with CGA using RW; CGA for stairs; Rosario for memory, modA for problem solving. Anticipated d/c date is 06/07; will need to schedule family training with daughter - Patient Problems (1) Acute ischemic stroke Current Visit: Yes Status: Acute (2) Hemiparesis affecting left side as late effect of cerebrovascular accident Current Visit: Yes Status: Acute (3) Dysarthria due to cerebrovascular accident (CVA) Current Visit: No Status: Acute (4) HTN (hypertension) Current Visit: Yes Status: Chronic Qualifiers: Hypertension type: essential hypertension Qualified Code(s): I10 - Essential (primary) hypertension (5) Diabetes Current Visit: Yes Status: Chronic Qualifiers: Diabetes mellitus type: type 2 Diabetes mellitus complication status: with hyperglycemia Diabetes mellitus complication detail: D Diabetic retinopathy severity: D Proliferative retinopathy type: P Diabetes mellitus macular edema: D Diabetes mellitus fci insulin use: with supervisor intermediates use Laterality: L Chronic kidney disease stage: C Qualified Code(s): E11.65 - Type 2 diabetes mellitus with hyperglycemia; 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 No events overnight; continues to tolerate therapies well Objective - Constitutional Vitals: Vital Signs - 12hr 06/04/16 06/04/16 06/04/16 08:00 10:05 10:06 Temperature 97.6 F Pulse Rate 61 61 Pulse Rate [ 69 Right Brachial] Respiratory 20 Rate Blood Pressure 141/70 141/70 Blood Pressure 141/70 [Right Arm] O2 Sat by Pulse 97 Oximetry General appearance: Present: no acute distress - EENT Eyes: EOM intact ENT: hearing intact - Neck Neck: supple, normal ROM - Respiratory Respiratory effort: normal Extremities: No edema - Integumentary Integumentary: clear - Musculoskeletal Musculoskeletal: left sided weakness - Psychiatric Psychiatric: appropriate mood/affect, cooperative - Labs CBC & Chem 7: 06/03/16 06:07 06/03/16 06:07 Labs: Abnormal lab results 06/03/16 06/03/16 06/04/16 Range/Units 16:57 21:26 11:44 POC Glucose 153 H 182 H 182 H (70-105)
[2016-06-04] MEDS: LEVEMIR SUB-Q SCH (21:35)
[2016-06-05] MEDS: NOVOLOG SUB-Q SCH ×4 (07:30→22:12)
[2016-06-05] MEDS: LOVENOX SUB-Q SCH (10:00)
[2016-06-05] MEDS: ZESTRIL PO SCH (10:00)
[2016-06-05] MEDS: COLACE PO SCH ×2 (10:00→22:04)
[2016-06-05] MEDS: ECOTRIN PO SCH (10:15)
[2016-06-05] MEDS: NORVASC PO SCH (10:15)
[2016-06-05] MEDS: VITAMIN C PO SCH (10:15)
[2016-06-05] MEDS: COREG PO SCH ×2 (10:15→22:05)
--- NOTE | 2016-06-05 17:30 | Progress Note ---
Assessment and Plan 75 y.o. right handed male a/p acute right frontal CVA, left side neglect; facial droop, dysarthria, left hemiparesis - s/p right CVA- ASA, statin - gait dysfunction secondary to CVA- increased gait distance and independence with gait since admission - HTN/DM- stable - DVT px- lovenox - Patient Problems (1) Acute ischemic stroke Current Visit: Yes Status: Acute (2) Hemiparesis affecting left side as late effect of cerebrovascular accident Current Visit: Yes Status: Acute (3) Dysarthria due to cerebrovascular accident (CVA) Current Visit: No Status: Acute (4) HTN (hypertension) Current Visit: Yes Status: Chronic Qualifiers: Hypertension type: essential hypertension Qualified Code(s): I10 - Essential (primary) hypertension (5) Diabetes Current Visit: Yes Status: Chronic Qualifiers: Diabetes mellitus type: type 2 Diabetes mellitus complication status: with hyperglycemia Diabetes mellitus complication detail: D Diabetic retinopathy severity: D Proliferative retinopathy type: P Diabetes mellitus macular edema: D Diabetes mellitus fdc insulin use: with bronze chaser use Laterality: L Chronic kidney disease stage: C Qualified Code(s): E11.65 - Type 2 diabetes mellitus with hyperglycemia; Z79.4 - [facility] (current) use of insulin (6) Abnormality of gait following cerebrovascular accident (CVA) Current Visit: Yes Status: Acute Subjective Date of service: 06/05/16 Principal diagnosis: acute right frontal CVA Interval history: Pt seen in room this AM; F/U IPR course, s/p acute right frontal CVA. Doing well; no complaints on today Objective - Constitutional Vitals: Vital Signs - 12hr 06/05/16 09:00 Pulse Rate [ 64 Right Brachial] Respiratory 18 Rate Blood Pressure 132/66 [Right Arm] O2 Sat by Pulse 100 Oximetry General appearance: Present: no acute distress - EENT Eyes: EOM intact ENT: hearing intact - Neck Neck: supple, normal ROM - Respiratory Respiratory effort: normal Respiratory: bilateral: CTA - Cardiovascular Rhythm: regular Heart Sounds: Present: S1 & S2 Extremities: No edema - Integumentary Integumentary: clear - Musculoskeletal Musculoskeletal: left sided weakness - Psychiatric Psychiatric: appropriate mood/affect, cooperative - Allied health notes Allied health notes reviewed: PT (CGA- supervision for gait and transfers), OT ( SBA for dressing) - Labs CBC & Chem 7: 06/03/16 06:07 06/03/16 06:07 Labs: Abnormal lab results 06/04/16 06/05/16 06/05/16 Range/Units 21:08 07:41 12:01 POC Glucose 199 H 110 H 199 H (70-105)
[2016-06-05] MEDS: LEVEMIR SUB-Q SCH (22:01)
[2016-06-06] MEDS: NOVOLOG SUB-Q SCH ×5 (07:57→21:56)
[2016-06-06] MEDS: VITAMIN C PO SCH (09:00)
[2016-06-06] MEDS: NORVASC PO SCH (09:00)
[2016-06-06] MEDS: LOVENOX SUB-Q SCH (09:00)
[2016-06-06] MEDS: ZESTRIL PO SCH (09:01)
[2016-06-06] MEDS: ECOTRIN PO SCH (09:01)
[2016-06-06] MEDS: COREG PO SCH ×2 (09:01→21:40)
[2016-06-06] MEDS: COLACE PO SCH ×2 (09:02→21:40)
--- NOTE | 2016-06-06 14:12 | Progress Note ---
Assessment and Plan 75 y.o. right handed male a/p acute right frontal CVA, left side neglect; facial droop, dysarthria, left hemiparesis - s/p right CVA- ASA, statin - gait dysfunction secondary to CVA- CGA-supervision for transfers and gait - HTN/DM- remains stable - DVT px- lovenox - Patient Problems (1) Acute ischemic stroke Current Visit: Yes Status: Acute (2) Hemiparesis affecting left side as late effect of cerebrovascular accident Current Visit: Yes Status: Acute (3) Dysarthria due to cerebrovascular accident (CVA) Current Visit: No Status: Acute (4) HTN (hypertension) Current Visit: Yes Status: Chronic Qualifiers: Hypertension type: essential hypertension Qualified Code(s): I10 - Essential (primary) hypertension (5) Diabetes Current Visit: Yes Status: Chronic Qualifiers: Diabetes mellitus type: type 2 Diabetes mellitus complication status: with hyperglycemia Diabetes mellitus complication detail: D Diabetic retinopathy severity: D Proliferative retinopathy type: P Diabetes mellitus macular edema: D 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 No events overnight Objective - Constitutional Vitals: Vital Signs - 12hr 06/06/16 06/06/16 09:00 09:40 Temperature 98.0 F Pulse Rate 58 L Pulse Rate [ 58 L Apical] Respiratory 20 Rate Blood Pressure 127/77 Blood Pressure 127/77 [Right Arm] O2 Sat by Pulse 100 Oximetry General appearance: Present: no acute distress - EENT Eyes: EOM intact ENT: hearing intact - Neck Neck: supple, normal ROM - Respiratory Respiratory effort: normal Respiratory: bilateral: CTA - Cardiovascular Rhythm: regular Heart Sounds: Present: S1 & S2 - Gastrointestinal General gastrointestinal: Present: soft, non-tender, normal bowel sounds - Integumentary Integumentary: clear - Neurologic Neurologic: other (ongoing dysarthria and facial droop) - Psychiatric Psychiatric: appropriate mood/affect, cooperative - Allied health notes Allied health notes reviewed: PT (supervision to CGA for transfers and gait), ST (downgraded to mechanical soft on yesterday; pt is having difficulty eating with dentures, no signs of aspiration on regular), OT (Jie to supervision with ADLs) - Labs CBC & Chem 7: 06/03/16 06:07 06/03/16 06:07 Labs: Abnormal lab results 06/05/16 Range/Units 21:18 POC Glucose 197 H (70-105)
[2016-06-06] MEDS: LEVEMIR SUB-Q SCH (21:42)
[2016-06-07 08:11] VITALS: BP 144/87
[2016-06-07] MEDS: LOVENOX SUB-Q SCH (08:22)
[2016-06-07] MEDS: ECOTRIN PO SCH (08:56)
[2016-06-07] MEDS: ZESTRIL PO SCH (08:56)
[2016-06-07] MEDS: COLACE PO SCH (08:56)
[2016-06-07] MEDS: NOVOLOG SUB-Q SCH ×2 (08:58→12:45)
[2016-06-07] MEDS: COREG PO SCH (08:58)
[2016-06-07] MEDS: NORVASC PO SCH (10:49)
[2016-06-07] MEDS: VITAMIN C PO SCH (10:49)
--- NOTE | 2016-06-07 11:43 | Discharge Summary ---
Providers - Providers Date of Admission: 05/23/16 21:15 Date of discharge: 06/07/16 Attending physician: SWATI CHERRY 06/04/16 15:32 Speech Therapy Evaluation and Treat [CONS] Routine Reason For Exam: Resume speech tx 06/05/16 10:14 Occupational Therapy Evaluate and Treat [CONS] Routine Comment: Reason For Exam: continue, s/p CVA Physical Therapy Evaluation and Treat [CONS] Routine Comment: Reason For Exam: continue, s/p CVA Primary care physician: ALICIA MUNOZ Hospitalization Reason for admission: s/p right CVA Condition: Stable Hospital course: 75 y.o. right handed male admitted to [facility] due to acute onset of dysarthria, facial droop, left sided weakness, arm>leg. MRI Brain confirmed right frontal CVA. MBS was completed on acute care (05/23/2016); cleared for pureed with honey thickened liquids. Acute care course was complicated by fluctuating SBP, ranging from 144-199. Due to ongoing functional deficits, pt was admitted to IRU for aggressive therapies and ongoing medical management. Pt tolerated IRU course well; modifications in HTN and DM regimen were required; blood pressure and blood sugars are currently stable. Functionally, on admission pt required S /U for eating; Rosario for bathing; modA for dressing and toileting; maxA fro grooming; SBA/S for bed mobility; Rosario/CGA for transfers and ambulation 170 feet with RW. At the time of discharge, pt has progressed to Jie for eating, dressing, toileting; SBA for bathing, grooming, toilet/shower transfers; supervision for sit/stand transfers, wheelchair mobility, gait 400 feet with RW , and stairs. Memory is Rosario, problem solving at modA; diet has been upgraded to mechanical soft with thin liquids. Family training has been completed and pt is stable for d/c home. Disposition: DISCHARGED TO HOME OR SELFCARE - Discharge Diagnoses (1) Acute ischemic stroke Status: Acute (2) Hemiparesis affecting left side as late effect of cerebrovascular accident Status: Acute (3) Dysarthria due to cerebrovascular accident (CVA) Status: Acute (4) HTN (hypertension) Status: Chronic Qualifiers: Hypertension type: essential hypertension Qualified Code(s): I10 - Essential (primary) hypertension (5) Diabetes Status: Chronic Qualifiers: Diabetes mellitus type: type 2 Diabetes mellitus complication status: with hyperglycemia Diabetes mellitus complication detail: D Diabetic retinopathy severity: D Proliferative retinopathy type: P Diabetes mellitus macular edema: D 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 technician use Laterality: L Chronic kidney disease stage: C Qualified Code(s): E11.65 - Type 2 diabetes mellitus with hyperglycemia; Z79.4 - FCI (current) use of insulin (6) Abnormality of gait following cerebrovascular accident (CVA) Status: Acute Core Measure Documentation - Palliative Care Palliative Care/ Comfort Measures: Not Applicable - Core Measures Any of the following diagnoses?: stroke - Stroke Discharge Requirements Statin for LDL = or >70 mg/dl on DC: Yes Anticoag for atrial fib/atrial flutter: Not Applicable Antithrombotic for ischemic stroke: Yes Exam - Constitutional Vitals: Temp Pulse Resp BP Pulse Ox 97.5 F L 60 20 144/87 98 06/06/16 21:00 06/07/16 08:58 06/07/16 08:09 06/07/16 08:58 06/07/16 08:09 General appearance: Present: no acute distress - EENT Eyes: Present: EOM intact ENT: hearing intact - Neck Neck: Present: supple, normal ROM - Respiratory Respiratory effort: normal - Extremities Extremities: No edema - Abdominal General gastrointestinal: Present: soft, non-tender - Integumentary Integumentary: Present: clear - Musculoskeletal Musculoskeletal: left sided weakness - Psychiatric Psychiatric: appropriate mood/affect, cooperative Plan Activity: no driving until cleared by PCP, fall precautions Weight Bearing Status: Full Weight Bearing Diet: low cholesterol, low salt, diabetic Special Instructions: record daily BP diary, record blood sugar diary, physical therapy, occupational therapy, 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 Carvedilol [Coreg] 6.25 mg PO BID #60 tablet Lisinopril [Zestril TAB] 20 mg PO QDAY #30 tablet
== END 2016-06-07 16:35 | disposition home or self-care (01) | DRG 65 ==
LOC: 3B 21:15
PROVIDERS: ADMIT Family Medicine; ATTEND Family Medicine
DX: I63.9 Cerebral infarction, unspecified (principal); E87.1 Hypo-osmolality and hyponatremia; G81.94 Hemiplegia, unspecified affecting left nondominant side; R47.1 Dysarthria and anarthria; R13.10 Dysphagia, unspecified; I10 Essential (primary) hypertension; R26.9 Unspecified abnormalities of gait and mobility; Z60.2 Problems related to living alone; E11.65 Type 2 diabetes mellitus with hyperglycemia; Z86.73 Personal history of transient ischemic attack (TIA), and cerebral infarction without residual deficits; Z82.49 Family history of ischemic heart disease and other diseases of the circulatory system; Z83.3 Family history of diabetes mellitus; Z82.3 Family history of stroke; Z79.4 Long term (current) use of insulin
CPT/HCPCS: 36415; 74230; 80048; 80053; 82962; 85025; 85027; A9270-GY; J1650; J1815; J1818

== ENCOUNTER 2016-06-28 10:21 | Outpatient (CLI) | payer MEDICARE | END 2016-06-28 10:22 | disposition home or self-care (01) | LOC: SPVIMAG 10:21 | PROVIDERS: ATTEND Specialist | DX: I63.9 Cerebral infarction, unspecified (principal) | CPT/HCPCS: 70544; 70547 ==